=== PATIENT | male | born 1980 | race Two or more races ===

== ENCOUNTER 2025-07-23 08:08 | Emergency (ER) | payer OTHER ==
[~2025-07-23] VITALS: Ht 180.3 cm; Wt 74.8 kg
[2025-07-23 08:33] VITALS: BP 104/72; O2SAT 99
== END 2025-07-23 11:12 | disposition home or self-care (01) ==
LOC: ER 08:08
DX: H00.019 Hordeolum externum unspecified eye, unspecified eyelid (principal)